=== PATIENT | female | born 1980 | race Caucasian/White ===

== ENCOUNTER 2018-03-01 10:26 | Emergency (ER) | payer BC, SELFPAY ==
[2018-03-01] MEDS ORDERED: HYDROmorphone 1 MG/ML Syringe IVPUSH ONE (11:13)
[2018-03-01] MEDS ORDERED: Sodium Chloride 0.9% 10 ML Syringe FLUSH PRN (11:13)
--- NOTE | 2018-03-01 11:15 | EDM.PDOC ---
ED HPI GENERAL MEDICAL PROBLEM - General Chief Complaint: Lower Extremity Injury/Pain Stated Complaint: LEFT ANKLE INJURY Time Seen by Provider: 03/01/18 11:07 Source of Information: Reports: Patient, RN Notes Reviewed - History of Present Illness INITIAL COMMENTS - FREE TEXT/NARRATIVE: 37 year old female slipped on ice this morning with injury to L distal leg, ankle,foot. Severe pain. Had to crawl to a house to get help. Unable to bear wt L leg. No other pain or injury from the fall. No chest pain or difficulty breathing. No abd pain, nausea or vomiting. No known health problems. Left Ankle Pain Score (Numeric/FACES): 8 - Related Data Allergies Allergy/AdvReac Type Severity Reaction Status Date / Time No Known Allergies Allergy Verified 03/01/18 10:52 Home Meds: Home Meds Hydrocodone/Acetaminophen [[place] 5-325 Tablet] 1 each PO Q6HR PRN #14 tablet [Rx] Past Medical History - Past Health History Medical/Surgical History: Denies Medical/Surgical History Social & Family History - Tobacco Use Smoking Status *Q: Former Smoker Used Tobacco, but Quit: Yes Month/Year Tobacco Last Used: 2018 - Recreational Drug Use Recreational Drug Use: No Review of Systems - Review of Systems Review Of Systems: See Below Eyes: Reports: No Symptoms Ears: Reports: No Symptoms Mouth/Throat: Reports: No Symptoms Respiratory: Denies: Shortness of Breath, Pleuritic Chest Pain, Cough Cardiovascular: Denies: Chest Pain GI/Abdominal: Denies: Abdominal Pain, Nausea, Vomiting Musculoskeletal: Reports: Leg Pain, Joint Pain. Denies: Neck Pain Skin: Reports: Other (abrasions medial L ankle) Neurological: Reports: Difficulty Walking (unable to walk). Denies: Headache, Numbness, Tingling, Weakness ED EXAM, GENERAL - Physical Exam Exam: See Below General Appearance: Alert, Moderate Distress Eye Exam: Bilateral Eye: PERRL Throat/Mouth: Normal Inspection, Normal Oropharynx Head: Atraumatic. No: Facial Swelling Neck: Supple, Full Range of Motion Respiratory/Chest: No Respiratory Distress, Lungs Clear, Normal Breath Sounds Cardiovascular: Regular Rate, Rhythm Peripheral Pulses: 4+: Dorsalis Pedis (L), Dorsalis Pedis (R) GI/Abdominal: Soft, Non-Tender Back Exam: No: CVA Tenderness (L), CVA Tenderness (R), Paraspinal Tenderness, Vertebral Tenderness Extremities: Joint Swelling (there is swelling, mild deformity of L distal leg, ankle, moderate tenderness distal L leg, L ankle and L foot) Neurological: Alert, Oriented, No Motor/Sensory Deficits, Other (distal sensation intact, good DP pulses) Skin Exam: Warm, Dry, Normal Color Course - Vital Signs Last Recorded V/S: Last Vital Signs Temp 97.5 F 03/01/18 10:40 Pulse 89 03/01/18 10:40 Resp 16 03/01/18 10:40 BP 128/68 03/01/18 10:40 Pulse Ox 99 03/01/18 10:40 - Orders/Labs/Meds Meds: Medications Discontinued Medications Generic Name Dose Route Start Last Admin Trade Name Freq PRN Reason Stop Dose Admin Fentanyl 100 mcg 03/01/18 13:54 03/01/18 14:12 Sublimaze IVPUSH 03/01/18 13:55 50 mcg ONETIME ONE Administration Hydromorphone HCl 1 mg 03/01/18 11:13 03/01/18 11:49 Dilaudid IVPUSH 03/01/18 11:14 1 mg ONETIME ONE Administration Midazolam HCl 1 mg 03/01/18 13:54 03/01/18 15:21 Versed 1 Mg/Ml IVPUSH 03/01/18 13:55 Not Given ONETIME ONE Sodium Chloride 10 ml 03/01/18 11:13 03/01/18 11:49 Saline Flush FLUSH 10 ml ASDIRECTED PRN Administration Keep Vein Open - Re-Assessments/Exams Free Text/Narrative Re-Assessment/Exam: 03/01/18 14:28 X rays show fx of L distal fibula with lateral displacement of foot, medial jt space widened about 1.5 cm. Hav given dilaudid 0.5 mg IV for pain. splint applied with great toe traction, alignment slightly improved but still significant displacement. Will give some IV fentanyl, versed and try reduce into better position. 03/03/18 12:03 Follow up X rays show ankle in better position. She has no apparent health problems by hx or exam. She is medically stable for upcoming surgery. She has seen Dr Ingram in clinic, scheduled for surgery tomorrow. Departure - Departure Time of Disposition: 14:55 Disposition: Home, Self-Care 01 Condition: Fair Clinical Impression: Fracture, fibula Qualifiers: Encounter type: initial encounter Fibula location: distal Fracture type: closed Fracture morphology: unspecified fracture morphology Laterality: left Qualified Code(s): S82.832A - Other fracture of upper and lower end of left fibula, initial encounter for closed fracture - Discharge Information Prescriptions: Hydrocodone/Acetaminophen [[place] 5-325 Tablet] 1 each PO Q6HR PRN #14 tablet PRN Reason: Pain Referrals: Shahrzad Nichols PA-C [Primary Care Provider] - Forms: ED Department Discharge Additional Instructions: L short leg splint. Ice packs and elevation to help get swelling down. Crutches, no weight bearing. See Dr Ingram, Orthopedist at our local clinic this Thursday, Feb. 16 at 12:15. He is planning to do your surgery this .
--- NOTE | 2018-03-01 12:47 | CR ---
Left ankle: Four views of the left ankle were obtained. Comparison: No prior left ankle study. Displaced distal fibular fracture is seen. Ankle mortise is unstable with shifting of the tibia in a medial direction in relation to the talus. Incidental soft tissue surgical clips are seen. Plantar spur is noted. No additional fracture or other abnormality is seen. Impression: 1. Displaced distal fibular fracture with unstable ankle mortise as described above. 2. Incidental soft tissue surgical clips. Plantar spur. Diagnostic code #3
--- NOTE | 2018-03-01 12:47 | CR ---
Left foot: Four views of the left foot were obtained. Comparison: No prior foot exam. Displaced lateral malleolar fracture is again noted. Plantar spur is seen. No additional fracture is seen within the foot. Impression: 1. Displaced lateral malleolar fracture. Incidental plantar spur. 2. Nothing acute is otherwise seen on left foot exam. Diagnostic code #3
--- NOTE | 2018-03-01 12:47 | CR ---
Left tibia and fibula: AP and lateral views of the left tibia and fibula were obtained. Comparison: No previous study. Displaced lateral malleolar fracture is seen with shifting of the tibia in a medial direction in relation to the talus. No proximal tibia or fibular fracture is seen. Incidental soft tissue surgical clips are seen within the lower extremity. Impression: 1. Lateral malleolar fracture is again noted. Unstable ankle mortise. 2. Other incidental findings. No acute proximal abnormality is seen within the tibia or fibula. Diagnostic code #3
[2018-03-01] MEDS ORDERED: fentaNYL 100 MCG/2 ML SDV IVPUSH ONE (13:54)
[2018-03-01] MEDS ORDERED: Midazolam 1 MG/ML 2 ML SDV IVPUSH ONE (13:54)
--- NOTE | 2018-03-01 14:11 | CR ---
Left ankle: Single portable view of the left ankle was obtained. Comparison: Prior ankle study performed earlier on the same day (11:37 AM). Distal fibular fracture is again seen. Less displacement is seen but persistent shifting of the tibia in a medial direction in relation to the talus is seen. Skin zac are present. Fiberglass splint appears to be present. Impression: 1. Continuing unstable ankle mortise with abnormal alignment. 2. Slightly less displacement of previous fibular fracture. Diagnostic code #3
--- NOTE | 2018-03-01 14:59 | CR ---
Left ankle: Single AP view of the left ankle was obtained. Comparison: Previous left ankle study performed earlier on the same day (1:36 PM). Slightly asymmetric ankle mortise is noted. Finding is improved from previous exam. Lateral malleolar fracture is noted. Fiberglass cast or splint is in place. Impression: 1. Improved reduction but ankle mortise remaining slightly asymmetric. 2. Fiberglass cast or splint is in place. Diagnostic code #2
== END 2018-03-01 15:22 | disposition home or self-care (01) ==
LOC: JD.ED 10:26
DX: S82.62XA Displaced fracture of lateral malleolus of left fibula, initial encounter for closed fracture (principal); S82.832A Other fracture of upper and lower end of left fibula, initial encounter for closed fracture; W00.0XXA Fall on same level due to ice and snow, initial encounter; Z87.891 Personal history of nicotine dependence
CPT/HCPCS: 29505; 73590; 73600; 73610; 73630; 96374; 96375; 99283; J1170; J3010

== ENCOUNTER 2018-03-02 09:23 | Emergency (ER) | payer BC ==
[2018-03-02] MEDS ORDERED: Acetaminophen/HYDROcodone 325-5 MG Tab PO STA (10:35)
[2018-03-02] MEDS ORDERED: Ibuprofen 600 MG Tab PO ONE (10:35)
--- NOTE | 2018-03-02 10:43 | EDM.PDOC ---
ED HPI GENERAL MEDICAL PROBLEM - General Chief Complaint: Lower Extremity Injury/Pain Stated Complaint: LEFT ANKLE INJURY- PAIN MEDS NOT WORKING Time Seen by Provider: 03/02/18 10:02 Source of Information: Reports: Patient, Family (Mother), RN Notes Reviewed History Limitations: Reports: No Limitations - History of Present Illness INITIAL COMMENTS - FREE TEXT/NARRATIVE: Medical records indicate that the patient slipped on ice and fell yesterday morning, 03/01/2017, injuring her distal left leg. She was unable to stand, and had to crawl to someone's house to get help. She was otherwise uninjured. She was seen in this ED, where she was found to have a distal left fibular fracture , with lateral displacement of her foot. A splint was applied using great toe traction, and the patient was discharged home with a prescription for 14 tablets of [place] 5/325, one tablet every 6 hours as needed for pain, and instructions to elevate and ice the leg, and ambulate with crutches. She was to follow-up with Dr. Ingram tomorrow, 03/03/2018 at 12:15. Dr. Ingram expected to take the patient to the OR tomorrow, , 03/04/2018. The patient now returns to the ED complaining of uncontrolled pain to her distal left leg. She states that she has been taking the [place] every 6 hours, as prescribed. She has not taken any additional analgesic, such as ibuprofen or Aleve. She states that she developed a tingling sensation to her left 2nd through 5th toes last night. The patient's PCP is Shahrzad Nichols. Left Ankle Pain Score (Numeric/FACES): 8 - Related Data Allergies Allergy/AdvReac Type Severity Reaction Status Date / Time No Known Allergies Allergy Verified 03/03/18 15:30 Home Meds: Home Meds Acetaminophen [Tylenol] 325 mg PO Q4H PRN 03/03/18 [History] Hydrocodone/Acetaminophen [[place] 5-325 Tablet] 1 - 2 each PO Q6HR PRN #40 tablet 03/04/18 [Rx] Past Medical History Endocrine/Metabolic History: Reports: Obesity/BMI 30+ - Past Surgical History Cardiovascular Surgical History: Reports: Vascular Surgery (Bilateral lower extremity varicose vein removal) GI Surgical History: Reports: Appendectomy Social & Family History - Tobacco Use Smoking Status *Q: Former Smoker Years of Tobacco use: 12 Packs/Tins Daily: 1 Month/Year Tobacco Last Used: Quit Feb 2017 - Caffeine Use Caffeine Use: Reports: Coffee - Alcohol Use Alcohol Use History: Yes Alcohol Use Frequency: Socially - Recreational Drug Use Recreational Drug Use: No - Living Situation & Occupation Living situation: Reports: Single, Alone Occupation: Employed ([employer] in [place]) Review of Systems - Review of Systems Review Of Systems: ROS reveals no pertinent complaints other than HPI. ED EXAM, GENERAL - Physical Exam Exam: See Below Exam Limited By: No Limitations General Appearance: Alert, WD/WN, No Apparent Distress Extremities: Other (Prior to removal of the splint, the patient's left toes appeared to be well-perfused, with rapid capillary refill, however, she reported some decreased sensation to toes 2 through 5. The splint and cotton bunting was removed revealing a mildly swollen right ankle, with modest ecchymosis primarily to the lateral aspect. 2 small abrasions were noted to the medial aspect of the ankle, covered with a nonstick dressing. The patient reported improvement in the sensation to her toes following removal of the splint.) ED TRAUMA EXTREMITY PROCEDURES - Splinting Left Lower Extremity Splint Site: Left ankle Pre-Procedure NV Status: Normal Post-Procedure NV Status: Normal Splint Material: Fiberglass Splint Design: Posterior Applied & Form Fitted By: Provider Provider Post-Splint Application NV Check: NV Status Normal Complications: No Course - Vital Signs Last Recorded V/S: Last Vital Signs Temp 36.6 C 03/02/18 09:29 Pulse 98 03/02/18 09:29 Resp 16 03/02/18 09:29 BP 144/71 H 03/02/18 09:29 Pulse Ox 95 03/02/18 09:29 - Orders/Labs/Meds Meds: Medications Discontinued Medications Generic Name Dose Route Start Last Admin Trade Name Freq PRN Reason Stop Dose Admin Hydrocodone Bitart/Acetaminophen 1 tab 03/02/18 10:35 03/02/18 11:03 [place] 325-5 Mg PO 03/02/18 10:36 1 tab ONETIME STA Administration Ibuprofen 600 mg 03/02/18 10:35 03/02/18 11:03 Motrin PO 03/02/18 10:36 600 mg ONETIME ONE Administration - Re-Assessments/Exams Free Text/Narrative Re-Assessment/Exam: 03/02/18 10:37 Because of the patient's complaint of tingling to her left toes 2 through 5, I was concerned that the splint that was applied yesterday might have been too tight. I therefore removed the entire splint and reapplied a fresh splint, posterior mold, with the ankle at 90. The dressing over her medial ankle, that covers 2 abrasions, was left in place, however, I wrapped cotton bunting around it to keep it in place before applying the splint sock. Additional cotton bunting was then wrapped around the sock before placing the splint, and secured the splint with Lucio wraps. The patient tolerated the procedure well. The patient has been taking [place], one tablet every 6 hours, without adequate relief. I am recommending that she start taking [id number] ibuprofen, 600 mg every 8 hours, with food, and increase her [place] to 1-2 tablets every 6 hours , as needed for pain not relieved by ibuprofen. I would like the patient to continue to ice and elevate her left ankle, and she will be following up with Dr. Ingram at 12:15 tomorrow. Departure - Departure Time of Disposition: 10:38 Disposition: Home, Self-Care 01 Condition: Good Clinical Impression: Closed fracture of left distal fibula - Discharge Information *PRESCRIPTION DRUG MONITORING PROGRAM REVIEWED*: Not Applicable *COPY OF PRESCRIPTION DRUG MONITORING REPORT IN PATIENT CARLO: Not Applicable Instructions: Fibular Fracture With Rehab-SportsMed Referrals: Shahrzad Nichols PA-C [Primary Care Provider] - Kd Ingram MD [Physician] - Forms: ED Department Discharge Additional Instructions: You were seen in the emergency room for excessive left ankle pain, following a distal fibular fracture, yesterday, as well as tingling to your 2nd through 5th toes. The splint that was applied yesterday was removed, and a new splint applied. You should continue to ice and elevate your left ankle as much as possible over the next day or so. Be sure to ambulate only with crutches. You have been started on ibuprofen. Take 2-3 tablets (400-600 mg) every 8 hours , with food, around the clock. You may increase your previously prescribed [place] to 1-2 tablets up to every 6 hours, as needed for pain not relieved by ibuprofen. If you take Denver, do not drive for 10 hours afterwards. Denver will likely cause constipation, so consider taking a stool softener. Follow-up with the Orthopedic Surgeon Dr. Kd Ingram at your previously scheduled appointment 03/03/2018, at 12:15. If any other problems, please do not hesitate to return to the ER.
== END 2018-03-02 11:05 | disposition home or self-care (01) ==
LOC: JD.ED 09:23
DX: S82.832A Other fracture of upper and lower end of left fibula, initial encounter for closed fracture (principal); W00.0XXA Fall on same level due to ice and snow, initial encounter; Z87.891 Personal history of nicotine dependence
CPT/HCPCS: 29515; 99283; A9270

== ENCOUNTER 2018-03-04 06:38 | Day surgery (SDC) | payer BC ==
[2018-03-04] MEDS ORDERED: Lactated Ringers 1,000 ML IV SCH (07:00)
[2018-03-04] MEDS ORDERED: Lidocaine 1%/Sod Bicarbonate in NS 8.4% 1 ML Syringe IDERM PRN (07:00)
[2018-03-04] MEDS ORDERED: Sodium Chloride 0.9% 10 ML Syringe FLUSH PRN (07:00)
[2018-03-04] MEDS ORDERED: Ketorolac 30 MG/ML SDV ONE (07:04)
[2018-03-04] MEDS ORDERED: HYDROmorphone 0.5 MG/0.5 ML Syringe ONE (07:04)
[2018-03-04] MEDS ORDERED: Bupivacaine 0.25% 30 ML SDV ONE (07:04)
[2018-03-04] MEDS ORDERED: Dexamethasone 4 MG/ML 5 ML MDV ONE (07:04)
[2018-03-04] MEDS ORDERED: Midazolam 1 MG/ML 2 ML SDV ONE (07:04)
[2018-03-04] MEDS ORDERED: Propofol 200 MG/20 ML SDV ONE (07:04)
[2018-03-04] MEDS ORDERED: ceFAZolin 1 GM Vial ONE (07:04)
[2018-03-04] MEDS ORDERED: Ondansetron 4 MG/2 ML SDV ONE (07:04)
[2018-03-04] MEDS ORDERED: fentaNYL 250 MCG/5 ML SDV ONE (07:04)
--- NOTE | 2018-03-04 07:27 | PCM.PREANE ---
Preanesthetic Assessment - Anesthesia/Transfusion/Family Hx Anesthesia History: Prior Anesthesia Without Reaction Family History of Anesthesia Reaction: No Transfusion History: No Prior Transfusion(s) - Review of Systems General: No Symptoms Pulmonary: No Symptoms Cardiovascular: No Symptoms Gastrointestinal: No Symptoms Neurological: No Symptoms Other: Reports: None - Physical Assessment NPO Status Date: 03/03/18 NPO Status Time: 21:00 Pulse: 79 O2 Sat by Pulse Oximetry: 95 Respiratory Rate: 16 Blood Pressure: 107/48 Vital Signs: Last Vital Signs Temp 36.7 C 03/04/18 06:50 Pulse 79 03/04/18 06:50 Resp 16 03/04/18 06:50 BP 107/48 L 03/04/18 06:50 Pulse Ox 95 03/04/18 06:50 Weight: 104.326 kg ASA Class: 1 Mental Status: Alert & Oriented x3 Airway Class: Mallampati = 2 Dentition: Reports: Normal Dentition Thyro-Mental Finger Breadths: 3 Mouth Opening Finger Breadths: 3 ROM/Head Extension: Full Lungs: Clear to Auscultation, Normal Respiratory Effort Cardiovascular: Regular Rate, Regular Rhythm - Lab Values: Laboratory Last Values MRSA (PCR) Negative 03/03/18 13:09 - Allergies Allergies/Adverse Reactions: Allergies Allergy/AdvReac Type Severity Reaction Status Date / Time No Known Allergies Allergy Verified 03/03/18 15:30 - Blood Blood Available: No Product(s) Available: None - Anesthesia Plan Pre-Op Medication Ordered: None - Acknowledgements Anesthesia Type Planned: General Anesthesia Pt an Appropriate Candidate for the Planned Anesthesia: Yes Alternatives and Risks of Anesthesia Discussed w Pt/Guardian: Yes Pt/Guardian Understands and Agrees with Anesthesia Plan: Yes PreAnesthesia Questionnaire - Past Health History Medical/Surgical History: Denies Medical/Surgical History - SUBSTANCE USE Smoking Status *Q: Former Smoker Recreational Drug Use History: No - HOME MEDS Home Medications: Home Meds Acetaminophen [Tylenol] 325 mg PO Q4H PRN 03/03/18 [History] Hydrocodone/Acetaminophen [[place] 5-325 Tablet] 1 - 2 each PO Q6HR PRN #40 tablet 03/04/18 [Rx] - CURRENT (IN HOUSE) MEDS Current Meds: Current Medications Lactated Ringer's (Ringers, Lactated) 1,000 mls @ 125 mls/hr IV ASDIRECTED NIKI Stop: 03/04/18 23:00 Last Admin: 03/04/18 07:14 Dose: 125 mls/hr Lidocaine/Sodium Bicarbonate (Buffered Lidocaine 1% In Ns 8.4%) 0.25 ml IDERM ONETIME PRN PRN Reason: Prior to IV Start Stop: 03/04/18 18:00 Sodium Chloride (Saline Flush) 10 ml FLUSH ASDIRECTED PRN PRN Reason: Keep Vein Open Stop: 03/04/18 18:00 Discontinued Medications Bupivacaine HCl (Marcaine 0.25%) Confirm Administered Dose 30 ml .ROUTE .STK- MED ONE Stop: 03/04/18 07:05 Cefazolin Sodium (Ancef) Confirm Administered Dose 2 gm .ROUTE .STK-MED ONE Stop: 03/04/18 07:05 Dexamethasone (Dexamethasone) Confirm Administered Dose 20 mg .ROUTE .STK-MED ONE Stop: 03/04/18 07:05 Fentanyl (Sublimaze) Confirm Administered Dose 250 mcg .ROUTE .STK-MED ONE Stop: 03/04/18 07:05 Hydromorphone HCl (Dilaudid) Confirm Administered Dose 0.5 mg .ROUTE .STK-MED ONE Stop: 03/04/18 07:05 Ketorolac Tromethamine (Toradol) Confirm Administered Dose 30 mg .ROUTE .STK- MED ONE Stop: 03/04/18 07:05 Midazolam HCl (Versed 1 Mg/Ml) Confirm Administered Dose 2 mg .ROUTE .STK-MED ONE Stop: 03/04/18 07:05 Ondansetron HCl (Zofran) Confirm Administered Dose 4 mg .ROUTE .STK-MED ONE Stop: 03/04/18 07:05 Propofol (Diprivan 20 Ml) Confirm Administered Dose 200 mg .ROUTE .STK-MED ONE Stop: 03/04/18 07:05
[2018-03-04] MEDS ORDERED: Lactated Ringers 1,000 ML ONE (09:11)
--- NOTE | 2018-03-04 09:51 | CR ---
Left ankle: Seven fluoroscopic spot views were obtained utilizing C-arm device of the left ankle. Study shows reduction of previous lateral malleolar fracture with yazidism of alignment of the ankle mortise. Plate and screws are noted within the fibula as well as 2 fixation screws affixing the metal plate within the fibula to the tibia. Fluoroscopy time is given as 20.5 seconds. Impression: 1. Reduction and fixation of previous fracture. Diagnostic code #2
--- NOTE | 2018-03-04 09:54 | PCM.POSTAN ---
POST ANESTHESIA ASSESSMENT - MENTAL STATUS Mental Status: Alert, Oriented - VITAL SIGNS Pulse Rate: 99 SaO2: 99 Resp Rate: 12 Blood Pressure: 105/47 Temperature: 36.9 C - RESPIRATORY Respiratory Status: Respiratory Rate WNL, Airway Patent, O2 Saturation Stable, Supplemental Oxygen - CARDIOVASCULAR CV Status: Pulse Rate WNL, Blood Pressure Stable - GASTROINTESTINAL GI Status: No Symptoms - PAIN Pain Score: 0 - POST OP HYDRATION Hydration Status: Adequate & Stable
[2018-03-04] MEDS ORDERED: fentaNYL 100 MCG/2 ML SDV IVPUSH PRN (09:55)
[2018-03-04] MEDS ORDERED: HYDROmorphone 0.5 MG/0.5 ML Syringe IVPUSH PRN (09:55)
[2018-03-04] MEDS ORDERED: diphenhydrAMINE 50 MG/ML SDV IVPUSH PRN (09:55)
[2018-03-04] MEDS ORDERED: Acetaminophen/HYDROcodone 325-5 MG Tab PO PRN (10:50)
--- NOTE | 2018-03-04 12:50 | PCM48HPAN ---
Post Anesthesia Note - EVALUATION WITHIN 48HRS OF ANESTHETIC Vital Signs in Normal Range: Yes Patient Participated in Evaluation: Yes Respiratory Function Stable: Yes Airway Patent: Yes Cardiovascular Function Stable: Yes Hydration Status Stable: Yes Pain Control Satisfactory: Yes Nausea and Vomiting Control Satisfactory: Yes Mental Status Recovered: Yes Pulse Rate: 99 SaO2: 100 Resp Rate: 16 Temperature: 36.9 C Blood Pressure: 105/47
--- NOTE | 2018-03-08 07:11 | PCM.OPNOTE ---
- General Post-Op/Procedure Note Date of Surgery/Procedure: 03/04/18 Operative Procedure(s): open reduction internal fixation of left lateral malleolus and syndesmosis Pre Op Diagnosis: left bimalleolar ankle equivalent fracture with syndesmotic disruption Post-Op Diagnosis: Same Anesthesia Technique: General LMA, Local Primary Surgeon: Kd Ingram Anesthesia Provider: Rayna Sutton Porcelain Technician: Doreen Pryor EBL in mLs: 10 Complications: None Condition: Good
--- NOTE | 2018-03-10 08:04 | OR ---
DATE OF OPERATION: 03/04/2018 SURGEON: Kd Ingram MD OPERATION PERFORMED: Open reduction, internal fixation, left lateral malleolus fracture and syndesmosis. PREOPERATIVE DIAGNOSIS: Left bimalleolar ankle equivalent fracture with syndesmotic disruption. POSTOPERATIVE DIAGNOSIS: Left bimalleolar ankle equivalent fracture with syndesmotic disruption. ANESTHESIA TECHNIQUE: General LMA with local. ANESTHESIA PROVIDER: Jimmie Horton CRNA HEAT TREATER APPRENTICE: Doreen Pryor PA-C. ESTIMATED BLOOD LOSS: Less than 10 mL. COMPLICATIONS: None. CONDITION: Stable. DESCRIPTION OF PROCEDURE: The patient was identified in the preop holding area. Proper site was marked and identified by the surgeon. The patient was taken back to the OR where after adequate anesthesia, the patient's left lower extremity had a nonsterile tourniquet applied and was then sterilely prepped and draped in the usual sterile fashion. OR time-out was performed. The patient received 2 g IV Ancef. At this time, the left lower extremity was exsanguinated. Tourniquet was insufflated to 250 mmHg. Standard lateral incision was made over the lateral malleolus distally this was taken down to the fracture site. The fracture site was curetted and rongeured of all fracture hematoma. At this time, point-to- point reduction clamp was done and it was found to be anatomically reduced. A 3.5 lag screw was then placed across and lag by technique. At this time, it was found to have very minimal fixation given the which showed good bicortical purchase by direct visualization. At this time, a 1/3 tubular plate was placed laterally and two 4-0 cancellous screws were placed distally and three 3.5 cortical screws were placed proximally. At this time, there was two 3.5 tricortical syndesmotic screws were placed after syndesmotic reduction on both AP and lateral views. The ankle mortise was found to be symmetric. The stress test was negative with no widening of the ankle mortise and it was found to have adequate fixation on both the lateral malleolus as well as the syndesmosis at this time. Adequate saline was irrigated through the wound; 2-0 Vicryl was used subcutaneously. Mimi were used for the skin. The patient had a sterile soft dressing as well as a posterior slab splint placed and was sent to PACU in stable condition. ANESTHESIA: MMODAL /[id number]
== END 2018-03-04 11:31 | disposition home or self-care (01) ==
LOC: JD.SDS 06:38
PROVIDERS: ATTEND Orthopaedic Surgery
DX: S82.842A Displaced bimalleolar fracture of left lower leg, initial encounter for closed fracture (principal); W00.0XXA Fall on same level due to ice and snow, initial encounter; Z87.891 Personal history of nicotine dependence
CPT/HCPCS: 27829; 76000; 87641; A9270; C1713; C1776; J0690; J1100; J1170; J1885; J2250; J2405; J2704; J3010; J3490; J7120; 01480